=== PATIENT | female | born 1990 | race Caucasian/White ===

== ENCOUNTER 2018-10-06 02:02 | Inpatient (IN) | payer BC ==
[~2018-10-06] VITALS: Ht 157.5 cm; Wt 59.9 kg
[2018-10-06] VITALS (8 sets, daily range): BP systolic 102–144; BP diastolic 55–78
[~2018-10-06 02:02] MED LIST: ALBUTEROL INHALER; KLONOPIN0.5 MG PO; LAMICTAL100 MG PO; RITALIN20 MG PO
--- OUTSIDE RECORDS SUMMARY | 2018-10-06 02:05 | XMS REPORT ---
Author Author [facility] Address Unknown Phone Unavailable Care Team Providers Care Landscaper Name Role Phone Unavailable Unavailable Problems This patient has no known problems. Allergies, Adverse Reactions, Alerts This patient has no known allergies or adverse reactions. Medications This patient has no known medications.
[2018-10-06] MEDS ORDERED: ONDANSETRON HCL INJ 2MG/ML 2ML 2 MG/ML VIAL IV STA (02:25)
[2018-10-06] MEDS ORDERED: ACETAMINOPHEN 325 MG TAB PO ONE (02:30)
[2018-10-06] MEDS ORDERED: MORPHINE SULFATE INJ 4 MG/ML INJ 1ML IV PRN (02:45)
[2018-10-06] MEDS ORDERED: CEFTRIAXONE SOD 1 GM/NS 50 ML 50 ML IV ONE (02:45)
[2018-10-06 02:46] LABS: BASOPHILS % 0.4 % (0.0-1.0); EOSINOPHILS # (AUTO) 0.2 (0.0-0.4); EOSINOPHILS % 1.7 % (0.0-6.0); HEMATOCRIT 33.7 % (34.2-44.1); HEMOGLOBIN 11.5 g/dL (12.0-16.0); LYMPHOCYTES # (AUTO) 1.3 (1.0-3.2); LYMPHOCYTES % 11.6 % (18.0-39.1); MEAN CORPUSCULAR HEMOGLOBIN 29.6 pg (28-32); MEAN CORPUSCULAR HGB CONC 34.1 g/dL (31-35); MEAN CORPUSCULAR VOLUME 86.6 fL (81-99); MONOCYTES # (AUTO) 0.2 (0.2-0.8); MONOCYTES % 1.9 % (4.4-11.3); NEUTROPHILS % 84.1 % (38.7-80.0); PLATELET COUNT 406 x10e3/uL (140-360); RED BLOOD COUNT 3.89 x10e6/uL (3.6-5.1); RED CELL DISTRIBUTION WIDTH 12.4 % (11.7-14.4)
[2018-10-06 02:47] LABS: BILIRUBIN,URINE MODERATE (NEGATIVE); CLARITY,URINE SL CLOUDY (CLEAR); COLOR,URINE YELLOW (YELLOW); KETONES,URINE TRACE (NEGATIVE); LEUKOCYTE ESTERASE ,URINE NEGATIVE (NEGATIVE); NITRITE,URINE NEGATIVE (NEGATIVE); PROTEIN,URINE DIPSTICK 2+ (NEGATIVE); URINE UROBILINOGEN 2 mg/dL (0.2 - 1)
[2018-10-06 02:53] LABS: PREGNANCY TEST, URINE NEGATIVE (NEGATIVE)
--- NOTE | 2018-10-06 02:55 | Diagnostic Imaging Report ---
EXAMINATION: CHEST 2 VIEWS INDICATION: Pain. Fever. COMPARISON: None FINDINGS: TUBES and LINES: None. LUNGS: Lungs are well inflated. Mild perihilar, peribronchial thickening and perihilar streaky densities may reflect viral infection versus reactive airway disease. There is no evidence of pneumonia or pulmonary edema. PLEURA: No pleural effusion or pneumothorax. HEART AND MEDIASTINUM: The cardiomediastinal silhouette is unremarkable. BONES AND SOFT TISSUES: No acute osseous lesion. Soft tissues are unremarkable. UPPER ABDOMEN: No free air under the diaphragm. IMPRESSION: Bilateral infection versus reactive airway disease. Signed by: Dr. Jomar Martin M.D. on 10/06/2018 2:52 AM
[2018-10-06 02:58] LABS: STREPTOCOCCUS GRP A ANTIGEN NEGATIVE (NEGATIVE)
[2018-10-06 03:01] LABS: BACTERIA,URINE MANY /HPF; RBC,URINE 0-5 /HPF (0-5); WBC,URINE (MAN) 0-5 /HPF (0-5)
[2018-10-06 03:02] LABS: EPITHELIAL CELLS,URINE FEW /LPF; MUCUS,URINE MODERATE (RARE)
[2018-10-06 03:06] LABS: INFLUENZAE A&B ANTIGEN (RAPID) NEGATIVE (NEGATIVE)
[2018-10-06 03:07] LABS: ALANINE AMINOTRANSFERASE 24 IU/L (0-55); ALBUMIN/GLOBULIN RATIO 0.7 (0.8-2.0); ALKALINE PHOSPHATASE 81 IU/L (40-150); ANION GAP 16.1 mmol/L (8-16); BLOOD UREA NITROGEN 7 mg/dL (7-26); BUN/CREATININE RATIO 10 (6-25); CARBON DIOXIDE 24 mmol/L (22-29); CHLORIDE 104 mmol/L (98-107); CREATININE, SERUM 0.73 mg/dL (0.57-1.11); EST GLOMERULAR FILTRATION RATE > 60 ML/MIN (60-); GLUCOSE 109 mg/dL (74-118); POTASSIUM 3.1 mmol/L (3.5-5.1); SODIUM 141 mmol/L (136-145)
[2018-10-06] MEDS: SODIUM CHLORIDE 0.9% 1000ML 1,000 ML IV SCH ×5 (03:18→22:30)
[2018-10-06] MEDS: CEFTRIAXONE SOD 1 GM/NS 50 ML 50 ML IV SCH ×2 (03:41→15:34)
[2018-10-06] MEDS ORDERED: ESCITALOPRAM OX20 MG PO (04:16)
--- NOTE | 2018-10-06 05:00 | NUR ---
Pt arrived to the unit as new admission via stretcher to room 210. Admit diagnosis is UTI. Pt alert and oriented x3. Ambulatory in room prn. Mother at bedside. IVF (NS at 125ml/hr) infusing. Call stephens within reach. Will monitor pt closely.
--- NOTE | 2018-10-06 05:30 | NUR ---
Pt given ice pack and applied on back of neck to help alleviate fever (temp - 100 F).
[2018-10-06] MEDS ORDERED: ALBUTEROL0.63 MG/3 INH (05:34)
[2018-10-06] MEDS ORDERED: POTASSIUM CHLORIDE 20 MEQ TAB CR PO STA (05:43)
--- NOTE | 2018-10-06 05:43 | NUR ---
Dr. Lott on the unit and visited pt in room. MD aware of patient condition. MD discussed plan of care to patient and mother. MD aware of fever (temp = 100 F and K level of 3.1). MD ordered Tylenol 650mg PO Q4hr prn and K-Dur 40meq PO x1.
[2018-10-06] MEDS: ACETAMINOPHEN 325 MG TAB PO PRN ×3 (06:05→18:17)
--- NOTE | 2018-10-06 07:11 | NUR ---
recd pt asleep resp, even and unlabored, easily aroused, no distress noted at this time, no c/o pain, call light in reach. will cont to monitor.
[2018-10-06] MEDS: ESCITALOPRAM OXALATE 10 MG TAB PO SCH (08:37)
[2018-10-06] MEDS: CLONAZEPAM 0.5 MG TAB PO PRN ×2 (11:51→18:17)
[2018-10-06] MEDS: ONDANSETRON HCL INJ 2MG/ML 2ML 2 MG/ML VIAL IV PRN ×2 (15:34→20:43)
[2018-10-06] MEDS: MORPHINE SULFATE INJ 4 MG/ML INJ 1ML IV PRN ×2 (15:34→20:42)
--- NOTE | 2018-10-06 19:45 | NUR ---
report given to oncoming nurse, pt stable at this time.
--- NOTE | 2018-10-06 19:47 | NUR ---
Patient received lying in bed. AAO x 4. Mother at bedside. Patient had no complaints of pain. No signs of respiratory distress. IVF infusing at 100 cc/ hr. Patient instructed to call for assistance when needed. Call light within reach.
--- NOTE | 2018-10-06 22:05 | NUR ---
Patient complained of not having slept for the past five days. Dr. Kaylie cook. New order received for Ambien 5mg QHS.
[2018-10-06] MEDS ORDERED: ZOLPIDEM TARTRATE 5 MG TAB PO PRN (22:15)
[2018-10-07] VITALS (8 sets, daily range): BP systolic 99–121; BP diastolic 51–80
[2018-10-07] MEDS: MORPHINE SULFATE INJ 4 MG/ML INJ 1ML IV PRN ×3 (02:26→19:58)
[2018-10-07] MEDS: ONDANSETRON HCL INJ 2MG/ML 2ML 2 MG/ML VIAL IV PRN ×3 (02:26→19:56)
[2018-10-07] MEDS: ACETAMINOPHEN 325 MG TAB PO PRN ×4 (02:47→22:52)
[2018-10-07] MEDS: CEFTRIAXONE SOD 1 GM/NS 50 ML 50 ML IV SCH ×2 (04:00→15:26)
[2018-10-07] MEDS ORDERED: KETOROLAC TROMETHAMINE 30 MG/ML VIAL IV STA (05:26)
[2018-10-07 05:37] LABS: BASOPHILS % 0.2 % (0.0-1.0); EOSINOPHILS # (AUTO) 0.1 (0.0-0.4); EOSINOPHILS % 1.3 % (0.0-6.0); HEMATOCRIT 29.9 % (34.2-44.1); HEMOGLOBIN 10.1 g/dL (12.0-16.0); LYMPHOCYTES # (AUTO) 1.2 (1.0-3.2); LYMPHOCYTES % 12.4 % (18.0-39.1); MEAN CORPUSCULAR HEMOGLOBIN 29.4 pg (28-32); MEAN CORPUSCULAR HGB CONC 33.8 g/dL (31-35); MEAN CORPUSCULAR VOLUME 87.2 fL (81-99); MONOCYTES # (AUTO) 0.3 (0.2-0.8); NEUTROPHILS % 82.6 % (38.7-80.0); PLATELET COUNT 405 x10e3/uL (140-360); RED BLOOD COUNT 3.43 x10e6/uL (3.6-5.1); RED CELL DISTRIBUTION WIDTH 12.7 % (11.7-14.4)
[2018-10-07 05:58] LABS: ALANINE AMINOTRANSFERASE 110 IU/L (0-55); ALBUMIN 2.3 g/dL (3.5-5.0); ALBUMIN/GLOBULIN RATIO 0.6 (0.8-2.0); ALKALINE PHOSPHATASE 162 IU/L (40-150); ANION GAP 13.1 mmol/L (8-16); BLOOD UREA NITROGEN < 5 mg/dL (7-26); CALCIUM 8.6 mg/dL (8.4-10.2); CARBON DIOXIDE 25 mmol/L (22-29); CHLORIDE 104 mmol/L (98-107); CREATININE, SERUM 0.66 mg/dL (0.57-1.11); EST GLOMERULAR FILTRATION RATE > 60 ML/MIN (60-); GLUCOSE 101 mg/dL (74-118); MAGNESIUM 1.6 MG/DL (1.3-2.1); POTASSIUM 3.1 mmol/L (3.5-5.1); SODIUM 139 mmol/L (136-145)
[2018-10-07 06:03] LABS: BUN/CREATININE RATIO 8 (6-25)
--- NOTE | 2018-10-07 06:27 | NUR ---
Dr. Lott paged regarding elevated temperature (103F) and low potassium level of 3.1. Awaiting call back.
--- NOTE | 2018-10-07 06:29 | NUR ---
Dr. Henderson paged regarding "Routine Consult". Reason: Fever. Awaiting call back.
--- NOTE | 2018-10-07 06:32 | NUR ---
New order received from Dr. Lott for low potassium level.
[2018-10-07] MEDS ORDERED: POTASSIUM CHLORIDE 20 MEQ TAB CR PO ONE (06:45)
--- NOTE | 2018-10-07 07:00 | NUR ---
Walking rounds done. Patient resting comfortably. Shift report given to oncoming nurse.
--- NOTE | 2018-10-07 07:15 | NUR ---
RCD PT AT BED PT IS ALERT AND ORIENTED RESTING ON BED NO SIGNS OF ANY DISTRESS NOTED IV PATENT FAMILY AT BED SIDE BED LOW AND LOCKED CALL LIGHT IN REACH
[2018-10-07] MEDS: SODIUM CHLORIDE 0.9% 1000ML 1,000 ML IV SCH ×2 (08:30→18:30)
[2018-10-07] MEDS: ESCITALOPRAM OXALATE 10 MG TAB PO SCH (09:00)
[2018-10-07] MEDS: AZITHROMYCIN 500MG/NS 250 ML 250 ML IV SCH (11:45)
[2018-10-07] MEDS: CLONAZEPAM 0.5 MG TAB PO PRN (12:11)
[2018-10-07 14:05] LABS: HIV 1&2 AB SCREEN NON-REACTIVE (NONREACTIVE)
--- NOTE | 2018-10-07 14:06 | NUR ---
DISCUSSED IN BARRIER ROUNDS PT HAS HAD 103 FEVERS, ON IV FLUIDS AND ABX, GMLOS OS 3 AND POSSIBLE DC DATE OF 10/09/2018
--- NOTE | 2018-10-07 15:08 | Diagnostic Imaging Report ---
EXAM: Right upper quadrant abdominal ultrasound INDICATION: Right upper quadrant pain COMPARISON: None. TECHNIQUE: Transverse and longitudinal images of the right upper quadrant abdomen were obtained FINDINGS: Liver: Size: 14.8 cm in the right midclavicular line, normal Appearance: Normal echogenicity, smooth contour Mass: No focal masses Gallbladder: No gallbladder distension, pericholecystic fluid, wall thickening, stone, or reported sonographic Ellison's sign. Gallbladder wall measures 0.2 cm. Bile Ducts: Intrahepatic Ducts: No dilatation Extrahepatic Ducts: Common bile duct measures 0.3cm, no dilatation Pancreas: Visualized portions of the pancreatic head, neck and proximal body are normal. Kidney: The right kidney measures 10.6 cm without evidence of hydronephrosis or stone. Vessels: Aorta: Visualized portions are normal Inferior Vena Cava: Visualized portions are normal Main Portal Vein: 0.9 cm, normal size with hepatopetal flow. Free Fluid: No ascites or pleural effusion IMPRESSION: Unremarkable right upper quadrant ultrasound. Signed by: Jessica Lambert MD on 10/07/2018 3:04 PM
--- NOTE | 2018-10-07 15:21 | Consultation ---
DATE OF CONSULTATION: 10/07/2018 REASON FOR CONSULTATION: Fever, chills, body ache. HISTORY OF PRESENT ILLNESS: This patient who is a 28-year-old white female denies past medical history. 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 Apparently, she was in her usual state of health until about 4 or 5 days ago when she had generalized aches and pains and not feeling well with nausea, some headache, went to [facility] because she was not getting any better UTI. She was given antibiotic but her symptoms got worse. She had fever sensation, some shortness of breath. Came to the emergency room around 1:30 in the morning when she was admitted. She was diagnosed with pneumonia. The patient was started on Rocephin. She is currently feeling slightly better, but still not feeling well. She has generalized aches and pain. She has headache with fever sensation. PAST MEDICAL HISTORY: She denies. PAST SURGICAL HISTORY: She denies. ALLERGIES: NKA. SOCIAL HISTORY: There is no smoking, drug abuse, or alcohol abuse. She takes care of 3 kids, they are not her own kids. REVIEW OF SYSTEMS: HEENT: Headache. No visual changes or hearing changes. GI: There is no nausea, no vomiting, no diarrhea. CARDIAC: There is no arrhythmia. NEURO: No seizure activity. SKIN: There are no other rashes. JOINTS: No erythema or edema. All other systems are within normal limits. LABORATORY DATA: Blood culture is negative. White count is 10.73, hemoglobin 11.5, hematocrit 33. Her platelets . Her sodium 139, potassium 3.1. When she first came liver enzyme within normal limit, but today they went up to AST 149, ALT 110 and alkaline phosphatase 162. MEDICATION LIST: She is currently on Lexapro, Tylenol. The patient was on ceftriaxone and Zofran. FAMILY HISTORY: Unremarkable. SOCIAL HISTORY: She had 3 dogs. No travel recently. PHYSICAL EXAMINATION: GENERAL: She is currently alert and oriented, does not seem to be in acute distress. VITAL SIGNS: Stable. Currently afebrile, but she did have a fever of 103. HEENT: Normocephalic. Does not appear icteric. NECK: Supple. CHEST: Clear. HEART: S1, S2. No S3, S4, or murmur. ABDOMEN: Soft. Bowel sounds present. No tenderness. EXTREMITIES: No edema. SKIN: No rash. JOINTS: There is no erythema or effusion. IMPRESSION: 1. Fever, headache, body aches and elevated liver enzyme. The chest x-ray showed diffuse bilateral infiltrates, concerned about viral illness, concerned about other such as atypical infection. Continue Rocephin. We will add azithromycin. Await blood cultures. Check for HIV. Check for hepatitis and check for CMV, EBV and Toxo and Legionella, chlamydia and mycoplasma. 2. Agree with IV fluids. 3. We will follow with you and discuss with the patient. 4. Elevated liver enzyme. We will check liver enzyme. Obtain ultrasound and the phone number. I think it is all part of her syndrome. Further recommendations to follow. MD NUHA Rowland/CHARLY /[id number]
--- NOTE | 2018-10-07 18:43 | NUR ---
PT RESTING ON BED BED SIDE REPORT GIVEN TO ONCOMING NURSE
[2018-10-08] VITALS (8 sets, daily range): BP systolic 112–142; BP diastolic 56–73
[2018-10-08] MEDS: ONDANSETRON HCL INJ 2MG/ML 2ML 2 MG/ML VIAL IV PRN ×5 (00:08→19:41)
[2018-10-08] MEDS: MORPHINE SULFATE INJ 4 MG/ML INJ 1ML IV PRN ×5 (00:10→19:42)
[2018-10-08] MEDS: CEFTRIAXONE SOD 1 GM/NS 50 ML 50 ML IV SCH ×2 (03:30→15:30)
[2018-10-08] MEDS: SODIUM CHLORIDE 0.9% 1000ML 1,000 ML IV SCH ×2 (04:42→14:30)
[2018-10-08 06:43] LABS: BASOPHILS % 0.3 % (0.0-1.0); EOSINOPHILS # (AUTO) 0.4 (0.0-0.4); EOSINOPHILS % 4.3 % (0.0-6.0); HEMATOCRIT 27.4 % (34.2-44.1); HEMOGLOBIN 9.1 g/dL (12.0-16.0); LYMPHOCYTES # (AUTO) 1.2 (1.0-3.2); MEAN CORPUSCULAR HEMOGLOBIN 29.5 pg (28-32); MEAN CORPUSCULAR HGB CONC 33.2 g/dL (31-35); MONOCYTES # (AUTO) 0.3 (0.2-0.8); MONOCYTES % 2.9 % (4.4-11.3); NEUTROPHILS # (AUTO) 7.8 (2.1-6.9); NEUTROPHILS % 79.9 % (38.7-80.0); PLATELET COUNT 448 x10e3/uL (140-360); RED BLOOD COUNT 3.08 x10e6/uL (3.6-5.1); RED CELL DISTRIBUTION WIDTH 13.1 % (11.7-14.4)
--- NOTE | 2018-10-08 07:01 | NUR ---
BEDSIDE SHIFT REPORT GIVEN TO ONCOMING NURSE.PT RESTING IN BED WITH NO S/S OF DISTRESS.
[2018-10-08 07:04] LABS: ALANINE AMINOTRANSFERASE 85 IU/L (0-55); ALBUMIN 2.1 g/dL (3.5-5.0); ALBUMIN/GLOBULIN RATIO 0.6 (0.8-2.0); ALKALINE PHOSPHATASE 175 IU/L (40-150); ANION GAP 12.3 mmol/L (8-16); BLOOD UREA NITROGEN < 5 mg/dL (7-26); CALCIUM 8.2 mg/dL (8.4-10.2); CARBON DIOXIDE 26 mmol/L (22-29); CHLORIDE 103 mmol/L (98-107); CREATININE, SERUM 0.63 mg/dL (0.57-1.11); EST GLOMERULAR FILTRATION RATE > 60 ML/MIN (60-); GLUCOSE 93 mg/dL (74-118); POTASSIUM 3.3 mmol/L (3.5-5.1); SODIUM 138 mmol/L (136-145)
[2018-10-08 07:11] LABS: BUN/CREATININE RATIO 8 (6-25)
[2018-10-08] MEDS: ACETAMINOPHEN 325 MG TAB PO PRN ×2 (07:25→15:43)
--- NOTE | 2018-10-08 07:39 | NUR ---
PAGED AND NOTIFIED POTASSIUM LEVEL TO DR ANDREWS GOT NEW ORDERS
[2018-10-08] MEDS ORDERED: POTASSIUM CHLORIDE 20 MEQ TAB CR PO ONE (08:15)
[2018-10-08] MEDS: POLYETHYLENE GLYCOL 3350 17 GM PACK PO SCH ×2 (09:00→17:00)
[2018-10-08] MEDS: CLONAZEPAM 0.5 MG TAB PO PRN (11:18)
[2018-10-08] MEDS: AZITHROMYCIN 500MG/NS 250 ML 250 ML IV SCH (11:45)
[2018-10-08 12:36] LABS: INR 1.04; PROTHROMBIN TIME 14.1 seconds (11.9-14.5)
[2018-10-08 12:37] LABS: PARTIAL THROMBOPLASTIN TIME 41.9 seconds (23.8-35.5)
[2018-10-08] MEDS ORDERED: LIDOCAINE HCL 1% LOCAL INJ 20 ML VIAL ONE (12:48)
--- NOTE | 2018-10-08 13:24 | NUR ---
PT WENT TO PROCEDURE IN SAFE CONDITION
[2018-10-08 16:37] LABS: APPEARANCE,CSF CLEAR (CLEAR)
[2018-10-08 16:38] LABS: COLOR,CSF COLORLESS (COLORLESS); TUBE NUMBER 3
--- NOTE | 2018-10-08 16:38 | Diagnostic Imaging Report ---
ADDENDUM #1 Radiation Dose Fluoroscopy time (min): 1.1 Reference air kerma (mGy): 8.1 Signed by: Jessica Lambert MD on 12/09/2018 4:37 PM ORIGINAL REPORT PROCEDURE: Fluoroscopically guided lumbar puncture. Procedural Personnel Attending physician(s): Jessica Lambert MD Pre-procedure diagnosis: Headache, concern for meningitis Post-procedure diagnosis: Same Indication: Headache, concern for meningitis Additional clinical history: None Complications: No immediate complications. IMPRESSION: Fluoroscopically guided lumbar puncture performed at the L3-4 level demonstrating opening pressure of 14 mmHg. 12 cc clear cerebral spinal fluid collected and sent for analysis. Plan: Resume care by clinical team. PROCEDURE SUMMARY: -Fluoroscopically guided lumbar puncture at L2-3. - Additional procedure(s): None PROCEDURE DETAILS: Pre-procedure Consent: Informed consent for the procedure including risks, benefits and alternatives was obtained and time-out was performed prior to the procedure. Preparation: The site was prepared and draped using maximal sterile barrier technique including cutaneous antisepsis. Anesthesia/sedation Level of anesthesia/sedation: No sedation Anesthesia/sedation administered by: Not applicable Initial fluoroscopic evaluation of the lumbar spine: Findings: A safe window for lumbar puncture was identified at L3-4. Lumbar puncture Local anesthesia was administered. The needle was advanced into the thecal space and CSF return was achieved. Opening pressure was measured at 14 mmHg. CSF samples were collected and sent for analysis. The needle was removed and sterile dressing applied. The patient tolerated the procedure well and was transported back to the floor in good condition. Additional Details Additional description of procedure: None Equipment details: None Specimens removed: Cerebrospinal fluid Estimated blood loss (mL): Less than 10 Attestation Signer name: Jessica Lambert MD I attest that I was present for the entire procedure. I reviewed the stored images and agree with the report as written. Signed by: Jessica Lambert MD on 10/08/2018 4:35 PM
[2018-10-08 16:39] LABS: WHITE BLOOD CELL,CSF 1 cells/uL (0-5)
--- NOTE | 2018-10-08 19:05 | NUR ---
PT RESTING ON BED BED SIDE REPORT GIVEN TO ONCOMING NURSE
[2018-10-08 19:43] LABS: TOTAL PROTEIN,CSF 15.8 mg/dL (15-40)
[2018-10-08] MEDS: ESCITALOPRAM OXALATE 10 MG TAB PO SCH (21:15)
[2018-10-09] VITALS (9 sets, daily range): BP systolic 102–131; BP diastolic 56–84
[2018-10-09] MEDS: ONDANSETRON HCL INJ 2MG/ML 2ML 2 MG/ML VIAL IV PRN ×5 (00:02→20:10)
[2018-10-09] MEDS: MORPHINE SULFATE INJ 4 MG/ML INJ 1ML IV PRN ×5 (00:02→20:10)
[2018-10-09] MEDS: SODIUM CHLORIDE 0.9% 1000ML 1,000 ML IV SCH ×2 (04:01→15:39)
[2018-10-09] MEDS: CEFTRIAXONE SOD 1 GM/NS 50 ML 50 ML IV SCH ×2 (04:01→15:39)
[2018-10-09] MEDS: ACETAMINOPHEN 325 MG TAB PO PRN ×2 (04:23→12:57)
[2018-10-09] MEDS ORDERED: BENZONATATE 100 MG CAP PO PRN (05:30)
[2018-10-09 05:31] LABS: BASOPHILS % 0.4 % (0.0-1.0); EOSINOPHILS # (AUTO) 0.5 (0.0-0.4); EOSINOPHILS % 5.9 % (0.0-6.0); HEMATOCRIT 26.4 % (34.2-44.1); HEMOGLOBIN 8.7 g/dL (12.0-16.0); LYMPHOCYTES # (AUTO) 1.6 (1.0-3.2); LYMPHOCYTES % 19.2 % (18.0-39.1); MEAN CORPUSCULAR HEMOGLOBIN 29.4 pg (28-32); MEAN CORPUSCULAR VOLUME 89.2 fL (81-99); MONOCYTES # (AUTO) 0.3 (0.2-0.8); MONOCYTES % 4.1 % (4.4-11.3); NEUTROPHILS # (AUTO) 5.8 (2.1-6.9); NEUTROPHILS % 69.7 % (38.7-80.0); PLATELET COUNT 480 x10e3/uL (140-360); RED BLOOD COUNT 2.96 x10e6/uL (3.6-5.1); RED CELL DISTRIBUTION WIDTH 13.2 % (11.7-14.4)
[2018-10-09 05:46] LABS: ALANINE AMINOTRANSFERASE 72 IU/L (0-55); ALBUMIN/GLOBULIN RATIO 0.6 (0.8-2.0); ALKALINE PHOSPHATASE 175 IU/L (40-150); ANION GAP 13.1 mmol/L (8-16); BLOOD UREA NITROGEN < 5 mg/dL (7-26); CALCIUM 8.3 mg/dL (8.4-10.2); CARBON DIOXIDE 24 mmol/L (22-29); CHLORIDE 105 mmol/L (98-107); CREATININE, SERUM 0.58 mg/dL (0.57-1.11); EST GLOMERULAR FILTRATION RATE > 60 ML/MIN (60-); GLUCOSE 97 mg/dL (74-118); POTASSIUM 3.1 mmol/L (3.5-5.1); SODIUM 139 mmol/L (136-145)
[2018-10-09 05:48] LABS: BUN/CREATININE RATIO 9 (6-25)
[2018-10-09] MEDS ORDERED: POTASSIUM CHLORIDE 20 MEQ TAB CR PO STA (05:58)
[2018-10-09] MEDS: POLYETHYLENE GLYCOL 3350 17 GM PACK PO SCH ×2 (08:47→15:39)
--- NOTE | 2018-10-09 09:02 | NUR ---
c/o sob with exertion. States "I use oxygen as needed" aware. See orders
--- NOTE | 2018-10-09 09:03 | NUR ---
Placed patient on 2L NC
[2018-10-09] MEDS ORDERED: ALBUTEROL/IPRATROPIUM 3 ML NEB NEB PRN (09:15)
--- NOTE | 2018-10-09 09:50 | NUR ---
Eyal Maynard P.A. aware of T 100.9 today at 0415.
[2018-10-09] MEDS: AZITHROMYCIN 500MG/NS 250 ML 250 ML IV SCH (10:40)
--- NOTE | 2018-10-09 13:50 | NUR ---
Notified of O2 eval results. Orders to consult received
--- NOTE | 2018-10-09 19:00 | Diagnostic Imaging Report ---
EXAM: CT Chest WITHOUT contrast 10/09/2018 4:47 PM INDICATION: ^abnormal cxr ^[id number] ^1800 COMPARISON: None TECHNIQUE: Chest was scanned utilizing a multidetector helical scanner from the lung apex through the level of the adrenal glands without administration of IV contrast. Absence of intravenous contrast decreases sensitivity for detection of lymphadenopathy and vascular pathology. Coronal and sagittal reformations were obtained. Routine protocol was performed. IV CONTRAST: None COMPLICATIONS: None RADIATION DOSE: Total DLP: 503.5 mGy*cm Estimated effective dose: (DLP x 0.015 x size factor) mSv CTDIvol has been reviewed. It is below the limits set by the Radiation Protocol Committee (RPC). FINDINGS: LINES/ TUBES: None. LUNGS AND AIRWAYS: Extensive bilateral groundglass and solid consolidations, mainly in both lower lobes with associated diffuse septal thickening and mild bronchiectasis. Multiple scattered upper lobe predominant pulmonary nodules measuring up to 5 mm. Airways are normal. PLEURA: Small to moderate low-attenuation bilateral pleural effusions. No pneumothorax. HEART AND MEDIASTINUM: The thyroid gland is normal. Multiple mildly enlarged noncalcified mediastinal lymph nodes with the largest measuring up to 1.2 cm in transverse diameter in the right lower paratracheal region. The heart is normal in size. There is no pericardial effusion. The thoracic aorta and pulmonary arteries are unremarkable. UPPER ABDOMEN: Unremarkable. BONES: The visualized bony thorax is within normal limits. SOFT TISSUES: Unremarkable. IMPRESSION: Given patient's symptoms, findings are most consistent with extensive bilateral multifocal pneumonia or aspiration pneumonitis with associated bilateral small to moderate parapneumonic effusion. If there is no improvement with antibiotic, consider bronchoscopy for final diagnosis. Multiple mildly enlarged noncalcified lymph nodes, likely reactive. Signed by: Dr. Kiara Zurita M.D. on 10/09/2018 6:56 PM
--- NOTE | 2018-10-09 19:20 | NUR ---
Report given to oncoming nurse of patient's status. Resting in bed. No s/s of acute distress noted. O2 2L NC.
--- NOTE | 2018-10-09 19:30 | NUR ---
aware of CT results. No new orders.
[2018-10-09] MEDS: ESCITALOPRAM OXALATE 10 MG TAB PO SCH (20:17)
--- NOTE | 2018-10-09 23:00 | Consultation ---
DATE OF CONSULTATION: 10/09/2018 Pulmonary Consultation REASON FOR CONSULT: Shortness of breath. HISTORY OF PRESENT ILLNESS: Ms. Parker is a 28-year-old female. She presented to the emergency room with high-grade fever of 102. The patient was seen by ID and IV antibiotics have been started. Also underwent an LP, it did not show any evidence of meningitis. Chest x-ray on the day, which was on the , it was done and is showing right lower lobe bilateral infiltrate, right more than the left. REVIEW OF SYSTEMS: GENERAL: No fever or chills. HEAD: Denies any head trauma. ENT: Denies any earaches. CVS: Denies any chest pain. RESPIRATORY: Shortness of breath. GI: Denies any nausea or vomiting. The rest of the review of systems are negative except as in HPI. PAST MEDICAL HISTORY: Depression and anxiety. PAST SURGICAL HISTORY: Adenoid removal. FAMILY AND SOCIAL HISTORY: She vapes. She does not smoke. She does not drink. 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 PHYSICAL EXAMINATION: VITAL SIGNS: Temperature 98.9, pulse of 96, blood pressure 114/57, respiratory rate of 18, and O2 saturation 93%. T-max of 100.9 in the last 24 hours. On 10/08, she went up to 102. HEENT: Head is atraumatic and normocephalic. NECK: Supple. CHEST: No crackles. No wheezing. HEART: S1, S2 audible. ABDOMEN: Soft and nontender. EXTREMITIES: No pedal edema. NEUROLOGIC: Awake and alert. No focal neurologic deficit. LABS: Chemistries within normal limits. White count of 8000, hemoglobin 8.7. Chest x-ray, I have reviewed the images, pneumonia. ASSESSMENT: A 28-year-old female presented with fever, likely has pneumonia. Reviewing the chest x-ray from 10/06. Also the dyspnea can be due to fluid overload. The patient is on IV fluids at 100 mL an hour. She responded well to nebulizer treatments. PLAN: 1. I will discontinue IV fluid. 2. Continue antibiotics per ID recommendation. 3. I will do a CT chest without contrast. Thank you for this consult. MD DONNA Guidry/CHARLY Garland: 10/09/2018 16:47:47 /[id number]
[2018-10-10] VITALS (8 sets, daily range): BP systolic 105–131; BP diastolic 58–77
[2018-10-10] MEDS: ONDANSETRON HCL INJ 2MG/ML 2ML 2 MG/ML VIAL IV PRN (03:00)
[2018-10-10] MEDS: MORPHINE SULFATE INJ 4 MG/ML INJ 1ML IV PRN (03:00)
[2018-10-10] MEDS: CEFTRIAXONE SOD 1 GM/NS 50 ML 50 ML IV SCH ×2 (03:02→15:15)
[2018-10-10] MEDS: ACETAMINOPHEN 325 MG TAB PO PRN ×4 (04:08→20:14)
[2018-10-10 05:39] LABS: BASOPHILS % 0.4 % (0.0-1.0); EOSINOPHILS # (AUTO) 0.5 (0.0-0.4); EOSINOPHILS % 6.6 % (0.0-6.0); HEMATOCRIT 26.1 % (34.2-44.1); HEMOGLOBIN 8.7 g/dL (12.0-16.0); LYMPHOCYTES # (AUTO) 1.4 (1.0-3.2); LYMPHOCYTES % 17.3 % (18.0-39.1); MEAN CORPUSCULAR HEMOGLOBIN 29.5 pg (28-32); MEAN CORPUSCULAR HGB CONC 33.3 g/dL (31-35); MEAN CORPUSCULAR VOLUME 88.5 fL (81-99); MONOCYTES # (AUTO) 0.4 (0.2-0.8); MONOCYTES % 5.4 % (4.4-11.3); NEUTROPHILS # (AUTO) 5.6 (2.1-6.9); NEUTROPHILS % 69.5 % (38.7-80.0); PLATELET COUNT 570 x10e3/uL (140-360); RED BLOOD COUNT 2.95 x10e6/uL (3.6-5.1); RED CELL DISTRIBUTION WIDTH 13.4 % (11.7-14.4)
[2018-10-10 06:04] LABS: ALANINE AMINOTRANSFERASE 84 IU/L (0-55); ALBUMIN/GLOBULIN RATIO 0.6 (0.8-2.0); ALKALINE PHOSPHATASE 192 IU/L (40-150); ANION GAP 13.4 mmol/L (8-16); BLOOD UREA NITROGEN < 5 mg/dL (7-26); CALCIUM 8.4 mg/dL (8.4-10.2); CARBON DIOXIDE 25 mmol/L (22-29); CHLORIDE 103 mmol/L (98-107); CREATININE, SERUM 0.57 mg/dL (0.57-1.11); EST GLOMERULAR FILTRATION RATE > 60 ML/MIN (60-); GLUCOSE 99 mg/dL (74-118); POTASSIUM 3.4 mmol/L (3.5-5.1); SODIUM 138 mmol/L (136-145)
[2018-10-10 06:12] LABS: BUN/CREATININE RATIO 9 (6-25)
--- NOTE | 2018-10-10 07:25 | NUR ---
PATIENT IN BED RESTING WITH NO RESPIRATORY DISTRESS. O2 IN PLACE VIA N/C. BED IN LOWER POSITION AND LOCKED, CALL LIGHT AT REACH.
[2018-10-10] MEDS: POLYETHYLENE GLYCOL 3350 17 GM PACK PO SCH ×2 (09:00→17:00)
[2018-10-10] MEDS ORDERED: FUROSEMIDE INJ 10 MG/ML 2 ML VIAL IV NR (11:15)
[2018-10-10] MEDS ORDERED: POTASSIUM CHLORIDE 20 MEQ TAB CR PO NR (11:30)
[2018-10-10] MEDS: AZITHROMYCIN 500MG/NS 250 ML 250 ML IV SCH (11:48)
--- NOTE | 2018-10-10 11:59 | NUR ---
SPOKE WITH MD REGARDING ABNORMAL LAB RESULT, NEW ORDER RECEIVED AND IMPLEMENTED.
--- NOTE | 2018-10-10 13:34 | NUR ---
BERYL SPOKE TO DR. LLOYD REGARDING PATIENT PLAN OF CARE AND DISCHARGE PLAN. AT THIS TIME PATIENT QUALIFIES FOR HOME OXYGEN. DR. LLOYD STATES PATIENT IS STILL TO RECEIVE IV ABX DUE TO WORSENING PNA AND RESPIRATORY STATUS. DR. LLOYD WANTS PATIENT TO STAY IN HOSPITAL OVER THE WEEKEND AND RE- EVALUATE PATIENT SUNDAY FOR HOME OXYGEN. BEDSIDE STEVEN WOO NOTIFIED.
[2018-10-10] MEDS: CLONAZEPAM 0.5 MG TAB PO PRN ×2 (15:05→22:30)
--- NOTE | 2018-10-10 15:50 | NUR ---
PATIENT ASSISTED WITH SHOWER, AND BACK TO BED. C/O COLD, WARM BLANKET PROVIDED. BED IN LOWER POSITION, CALL LIGHT AT REACH.
[2018-10-10] MEDS: ESCITALOPRAM OXALATE 10 MG TAB PO SCH (20:14)
[2018-10-11] MEDS: CEFTRIAXONE SOD 1 GM/NS 50 ML 50 ML IV SCH ×2 (04:12→15:30)
[2018-10-11 04:33] VITALS: BP 114/84
[2018-10-11] MEDS: CLONAZEPAM 0.5 MG TAB PO PRN (07:50)
[2018-10-11 07:57] VITALS: BP 119/76
--- NOTE | 2018-10-11 08:32 | Diagnostic Imaging Report ---
EXAMINATION: CHEST 2 VIEWS INDICATION: Pneumonia COMPARISON: Chest CT of 10/09/2018 FINDINGS: TUBES and LINES: None. LUNGS: The lungs are moderately inflated. There are patchy interstitial airspace opacities in the bilateral lower lungs which correspond with the groundglass and consolidative opacities seen on the CT of 10/09/2018. PLEURA: No pleural effusion or pneumothorax. HEART AND MEDIASTINUM: The cardiomediastinal silhouette is normal in size and contour. BONES AND SOFT TISSUES: No acute fracture or dislocation. UPPER ABDOMEN: No free air under the diaphragm. IMPRESSION: Bilateral lower lung patchy opacities correspond with groundglass and consolidative opacity seen on CT of 10/09/2018 and are likely intervally decreased allowing for differences in technique. Resolution of bilateral pleural effusions. RECOMMENDATIONS: Follow-up chest radiograph in 6-8 weeks to assess for resolution. Signed by: Jessica Lambert MD on 10/11/2018 8:29 AM
[2018-10-11 09:00] VITALS: BP 119/76
[2018-10-11] MEDS: POLYETHYLENE GLYCOL 3350 17 GM PACK PO SCH ×2 (09:00→17:00)
[2018-10-11] MEDS: AZITHROMYCIN 500MG/NS 250 ML 250 ML IV SCH (11:45)
[2018-10-11 12:00] VITALS: BP 136/85
[2018-10-11] MEDS: ONDANSETRON HCL INJ 2MG/ML 2ML 2 MG/ML VIAL IV PRN (13:39)
[2018-10-11 15:50] VITALS: BP 139/81
--- NOTE | 2018-10-11 16:15 | Progress Note ---
DATE: 10/11/2018 SUBJECTIVE: Ms. Parker is doing really good today. There are no complaints. REVIEW OF SYSTEMS: HEENT: Negative. PULMONARY: Negative. CARDIAC: Negative. : Negative. GI: Negative. LABORATORY DATA: All cultures are negative. Her white count is 7.98 and hemoglobin 8.7. Electrolytes within normal limit. Sodium 138 and potassium 3.4. Her serology so far is coming back negative. Hepatitis A, B, C was negative. HIV was negative. Mycoplasma IgM was negative, but IgG was elevated. EBV was also, IgG was positive, but IgM was negative. PHYSICAL EXAMINATION: GENERAL: She is currently alert, oriented, does not seem to be in acute distress. VITAL SIGNS: Stable. Currently afebrile. HEENT: She is not icteric. NECK: Supple. CHEST: Clear. HEART: S1 and S2. No S3, S4, or murmur. ABDOMEN: Soft. Bowel sounds present. No tenderness. EXTREMITIES: No edema. SKIN: No rash. IMPRESSION: Viral illness, resolved. Discharged home. Follow up with me in 2 weeks. Push p.o. fluid. Bedrest for now. Discussed with the patient. MD NUHA Rowland/CHARLY /[id number]
--- NOTE | 2018-10-11 18:26 | Progress Note ---
DATE: 10/11/2018 SUBJECTIVE: This is a 28-year-old female with a history of urinary tract infection, history of pneumonia, multifocal and has been treated on antibiotics. The patient is currently asymptomatic. No complaints. The patient is alert and oriented x3. The patient's repeat chest x-ray was found to be essentially within normal limits and healing. The patient has been seen by Infectious Disease and also seen by Dr. Hernandez. The patient presented with fever and currently afebrile. Chest x-rays and CT scan confirmed pneumonia. PHYSICAL EXAMINATION: VITAL SIGNS: 98.5, pulse of 73, respirations of 18, blood pressure is 139/81, and pulse oximetry of 95%. HEENT: Normocephalic and atraumatic. Pupils reactive to light and accommodation. CVS: S1 and S2 normal. Regular rate and rhythm. ABDOMEN: Nontender and nondistended. LUNGS: Positive for crackles at lung bases. EXTREMITIES: No clubbing. No cyanosis. No edema. MEDICATIONS: Includes Rocephin and azithromycin, which she has been taken for 7 days. The patient also takes morphine sulfate as needed, benzonatate, citalopram 20 mg, and clonazepam as needed. LABORATORY VALUES: White count has been normal 7.9, hemoglobin of 8.7, and hematocrit 26.7. MICROBIOLOGY: CSF cultures are normal. No growth after 72 hours and blood cultures and urine cultures were essentially normal too. No growth in the last 36 to 48 hours. ASSESSMENT: 1. Multifocal pneumonia. 2. History of hypoxia. The patient does not qualify for home O2. 3. Questionable urinary tract infection. The patient is asymptomatic at this time. 4. Bipolar disease. 5. Anemia. PLAN: Plan is to continue monitoring the patient at home. The patient to follow up in about a week time with Dr. Henderson. Can be discharged today. No antibiotics required. The patient will be discharged on Lexapro 20 mg every day. MD ERAN Monsalve/MODL /[id number]
--- NOTE | 2018-10-11 18:36 | NUR ---
PT WENT HOME IN SAFE CONDITION WITH HER MOTHER
--- NOTE | 2018-10-21 10:14 | Discharge Summary ---
DISCHARGE DIAGNOSES: 1. Viral pneumonia. 2. Acute respiratory failure with hypoxia. 3. Urinary tract infection. HISTORY OF PRESENT ILLNESS AND HOSPITAL COURSE: See hospital chart for full details since this discharge summary is not all encompassing. The patient is a young lady, who presented with muscle aches, back pain, and was seen in an outside facility, was found to have some urinary tract infection, was given some antibiotics, but unfortunately patient progressed where she started feeling worse, having high fevers, so she then came to the emergency room, where she was noticed and had evidence of a viral pneumonia. She was brought and placed on IV antibiotics and seen by Infectious Disease. She was also noticed started having some hypoxia, which responded to the O2. Her cultures remain negative. At the time of discharge, the patient was feeling much better. Her fevers had resolved, but due to her hypoxia, she was sent home with some oxygen to wean off over the next week or two and follow up with her primary care physician in 1 to 2 weeks and to return back to the emergency room if she worsens. Please see hospital chart for full details. MD NATACHA Godoy/CHARLY /[id number]
== END 2018-10-11 18:35 | disposition home or self-care (01) | DRG 871 ==
LOC: ER 02:02 → ERHOLD 03:18 → MED/SURG2 04:52 → OBSVTOIN 10-07 13:50
PROVIDERS: ADMIT Internal Medicine; ATTEND Internal Medicine
PROC: 009U3ZX Drainage of Spinal Canal, Percutaneous Approach, Diagnostic (ICD-10-PCS; principal; 2018-10-07)
PROC: B01B1ZZ Fluoroscopy of Spinal Cord using Low Osmolar Contrast (ICD-10-PCS; 2018-10-07)
DX: A41.9 Sepsis, unspecified organism (principal); J18.9 Pneumonia, unspecified organism; E87.1 Hypo-osmolality and hyponatremia; N30.00 Acute cystitis without hematuria; F32.9 Major depressive disorder, single episode, unspecified; Z82.49 Family history of ischemic heart disease and other diseases of the circulatory system; D64.9 Anemia, unspecified; E87.6 Hypokalemia; F31.9 Bipolar disorder, unspecified; F41.9 Anxiety disorder, unspecified; E86.0 Dehydration; R09.02 Hypoxemia; E87.70 Fluid overload, unspecified
CPT/HCPCS: 36415; 62270; 71046; 71250; 74470; 76705; 77003; 80053; 81001; 81025; 82945; 83518; 83735; 84157; 85025; 85610; 85730; 86631; 86644; 86645; 86663; 86664; 86665; 86738; 86777; 86778; 86789; 87040; 87070; 87086; 87205; 87390; 87400; 87449; 87529; 89051; 94640; 99284; G0378; G0433; G0435; J0456; J0696; J1885; J1940; J2001; J2270; J2405; J7030